=== PATIENT | male | born 1995 | race Asian ===

== ENCOUNTER 2017-05-18 01:29 | Emergency (ER) | payer OTHER ==
[~2017-05-18] VITALS: Ht 182.9 cm; Wt 77.1 kg
[2017-05-18 01:30] VITALS: BP 128/70
[2017-05-18] MEDS ORDERED: LORazepam 0.5mg tab ORAL ONE (01:30)
--- NOTE | 2017-05-18 01:35 | Emergency Room Report ---
History of Present Illness General Chief Complaint: Overdose Source: Patient, EMS Present Illness HPI [id number] with feeling anxious, palpitations, "not myself" after eating gummy marijuana edible Never had marijuana in the past Denies also using other drugs, ETOH Is college student at [employer] Denies chest pain, SOB, abd pain, headache, fever/chills Denies other medical problems Allergies: Coded Allergies: No Known Allergies (Unverified , 05/18/17) Patient History Past Medical History: none Past Surgical History: none Pertinent Family History: none Social History: Denies: smoking, alcohol use, drug use Immunizations: UTD Reviewed Nursing Documentation: PMH: Agreed, PSxH: Agreed Nursing Documentation-PMH Past Medical History: No Stated History Review of Systems All Other Systems: negative except mentioned in HPI Physical Exam Vital Signs Date Time Temp Pulse Resp B/P (MAP) Pulse Ox O2 Delivery O2 Flow Rate FiO2 05/18/17 01:11 97.9 105 16 128/70 100 Room Air Sp02 EP Interpretation: reviewed, normal General Appearance: normal inspection, well appearing, no apparent distress, alert, GCS 15, non-toxic Head: normocephalic, atraumatic Eyes: bilateral eye PERRL, bilateral eye EOMI ENT: normal ENT inspection, hearing grossly normal, normal voice Neck: normal inspection, full range of motion, supple, no bony tend Respiratory: normal inspection, lungs clear, normal breath sounds, no respiratory distress, no retraction, no wheezing Cardiovascular #1: regular rate, rhythm, no edema Gastrointestinal: normal inspection, normal bowel sounds, non tender, soft, no guarding, no hernia Genitourinary: no CVA tenderness Musculoskeletal: normal inspection, back normal, normal range of motion, Sarah' s Sign negative Neurologic: normal inspection, alert, responsive, speech normal Psychiatric: normal inspection, judgement/insight normal, memory normal, mood/ affect normal, no suicidal/homicidal ideation, no delusions, anxious Skin: normal inspection, normal color, no rash Medical Decision Making Diagnostic Impression: Primary Impression: Accidental marijuana overdose Qualified Codes: T40.7X1A - Poisoning by cannabis (derivatives), accidental ( unintentional), initial encounter ER Course VSS. Afebrile No other coingestants Sitting in FT, texting on iphone Given low dose ativan Feels much better Counseled on MJ use DC home Last Vital Signs Date Time Temp Pulse Resp B/P (MAP) Pulse Ox O2 Delivery O2 Flow Rate FiO2 05/18/17 01:11 97.9 105 16 128/70 100 Room Air Status: improved Disposition: HOME, SELF-CARE Condition: Improved Patient Instructions: Cannabis Use Disorder ANNABELLE GODINEZ M.D. May 18, 2017 01:35
[2017-05-18 01:40] VITALS: BP 128/70
== END 2017-05-18 01:40 | disposition home or self-care (01) ==
LOC: EDBD 01:29 → EMR 01:32
DX: T40.7X1A Poisoning by cannabis (derivatives), accidental (unintentional), initial encounter (principal); Y92.89 Other specified places as the place of occurrence of the external cause; R00.2 Palpitations; F41.9 Anxiety disorder, unspecified
CPT/HCPCS: 99283